=== PATIENT | female | born 1930 | race Caucasian/White ===

== ENCOUNTER → 2017-10-12 | Outpatient (CLI) | payer MEDICARE, BC ==
[~2017-10-12] MED LIST: CHOL2000 PO; DILT120C9 PO; DILT240C9 PO; FLEC50TA25 PO; FURO20TA3 PO; REGADENOSON 0.4 MG/5 ML SYRINGE ONE; SPIR25TA5 PO; WARF1TAB PO-COUM; WARF2.5T73 PO
== END | disposition home or self-care (01) ==
LOC: CFH 09:48
PROVIDERS: ATTEND Nurse Practitioner Family
DX: Z01.810 Encounter for preprocedural cardiovascular examination (principal); I08.1 Rheumatic disorders of both mitral and tricuspid valves; I21.09 ST elevation (STEMI) myocardial infarction involving other coronary artery of anterior wall; I48.91 Unspecified atrial fibrillation; I10 Essential (primary) hypertension; I42.9 Cardiomyopathy, unspecified; Z85.3 Personal history of malignant neoplasm of breast
CPT/HCPCS: 78452; 93017; 93306; A9502; J2785

== ENCOUNTER 2018-05-01 15:13 | Inpatient (IN) | payer MEDICARE, BC ==
[~2018-05-01] VITALS: Ht 160 cm; Wt 68.5 kg
[~2018-05-01 15:13] MED LIST changes: -REGADENOSON 0.4 MG/5 ML SYRINGE ONE; +WARF2.5T32 PO; -WARF2.5T73 PO
[2018-05-01] MEDS ORDERED: DILTIAZEM 125 MG in DEXTROSE 5% 100 ML IV SCH (15:55)
[2018-05-01] MEDS ORDERED: DILTIAZEM 5 MG/ML, 5ML IV ONE (16:00)
[2018-05-01] MEDS ORDERED: DILTIAZEM 5 MG/ML, 10ML ONE (16:16)
[2018-05-01 16:20] LABS: BASOPHILS # (AUTO) 0.01 x10^3/uL (0-0.1); BASOPHILS % (AUTO) 0 % (0-1); EOSINOPHILS # (AUTO) 0.01 x10^3/uL (0-0.4); EOSINOPHILS % (AUTO) 0 % (1-7); LYMPHOCYTES # (AUTO) 0.67 x10^3/uL (1-3.4); LYMPHOCYTES % (AUTO) 12 % (22-44); MD NO; MEAN CORPUSCULAR HEMOGLOBIN 31.9 pg (27.0-34.8); MEAN CORPUSCULAR HGB CONC 34.6 g/dL (32.4-35.8); MEAN CORPUSCULAR VOLUME 92.3 fL (80-100); MEAN PLATELET VOLUME 9.1 fL (7.4-10.4); MONOCYTES # (AUTO) 0.37 x10^3/uL (0.2-0.8); MONOCYTES % (AUTO) 7 % (2-9); NEUTROPHILS # (AUTO) 4.61 x10^3/uL (1.8-6.8); NEUTROPHILS % (AUTO) 81 % (42-75); PLATELET COUNT 146 x10^3/uL (130-400); RED BLOOD COUNT 5.07 x10^6/uL (3.82-5.3); RED CELL DISTRIBUTION WIDTH 14.8 % (9.6-15.2)
[2018-05-01 16:28] LABS: INTERNATIONAL NORMALIZED RATIO 1.73 (0.93-1.1); PROTHROMBIN TIME 17.8 Seconds (9.6-11.5)
[2018-05-01 16:31] LABS: ALBUMIN 3.8 g/dL (3.4-5.0); ANION GAP 7 mmol/L (5-15); CHLORIDE 109 mmol/L (98-107)
[2018-05-01 16:37] LABS: ALANINE AMINOTRANSFERASE 14 U/L (12-78); ALKALINE PHOSPHATASE 81 U/L (45-117); BILIRUBIN,TOTAL 1.5 mg/dL (0.2-1.0); CREATININE 1.77 mg/dL (0.55-1.02); TOTAL PROTEIN 7.5 g/dL (6.4-8.2); TROPONIN I 0.066 ng/mL (0.000-0.045)
--- NOTE | 2018-05-01 16:38 | NUR ---
LUNCH RN: BOLUS DOSE GIVEN OF CARDIZEM PER MAR, PT HR RESPONSIVE. CARDIZEM DRIP STARTED PER APR. VSS, HR DECREASING INTO 90s. RAD COMPLETED. AT BEDSIDE. CALL LIGHT WITHIN REACH.
[2018-05-01] MEDS ORDERED: PHARMACY MAY ADJ FOR RENAL FX MC PRN (19:30)
[2018-05-01] MEDS ORDERED: ONDANSETRON 2MG/ML, 2ML IVPush PRN (19:30)
[2018-05-01] MEDS ORDERED: ENOXAPARIN 40 MG/0.4 ML SQ SCH (19:30)
[2018-05-01] MEDS: DOXYCYCLINE 100MG TABLET PO SCH ×2 (19:30→23:00)
[2018-05-01] MEDS ORDERED: ONDANSETRON ODT 4 MG PO PRN (19:30)
[2018-05-01] MEDS ORDERED: POLYETHYLENE GLYCOL 17 GM PACKET PO PRN (19:30)
[2018-05-01] MEDS ORDERED: LABETALOL 5MG/ML, 20ML IVPush PRN (19:30)
[2018-05-01 19:46] LABS: FREE T4 (FREE THYROXINE) 1.05 ng/dL (0.76-1.46); TROPONIN I 0.075 ng/mL (0.000-0.045)
[2018-05-01 20:45] VITALS: BP 140/66
[2018-05-01] MEDS ORDERED: ENOXAPARIN 30 MG/0.3 ML SQ SCH (20:55)
[2018-05-01] MEDS ORDERED: FLECAINIDE 50MG TABLET PO SCH (21:00)
[2018-05-01] MEDS ORDERED: DILTIAZEM 120 MG CAP.ER.24H PO SCH (21:00)
[2018-05-01] MEDS ORDERED: WARFARIN 1 MG TABLET PO-COUM ONE (21:30)
[2018-05-01] MEDS: ASPIRIN 81 MG TABLET EC PO SCH (22:59)
[2018-05-01] MEDS: AMPICILLIN/SULBACTAM 3 GM in SODIUM CHLORIDE 0.9% 100 ML IV SCH (23:01)
[2018-05-01] MEDS: GUAIFENESIN 200 MG TABLET PO SCH (23:01)
[2018-05-01] MEDS ORDERED: ALBUTEROL SULFATE 2.5 MG/3 ML ONE (23:34)
[2018-05-01] MEDS: ENOXAPARIN 60 MG/0.6 ML SQ SCH (23:59)
[2018-05-02] MEDS ORDERED: ALBUTEROL SULFATE 2.5 MG/3 ML NPPB PRN
[2018-05-02 01:05] LABS: RAPID INFLUENZA A Negative (Negative); RAPID INFLUENZA B Negative (Negative)
[2018-05-02 01:34] VITALS: BP 122/75
[2018-05-02 02:56] LABS: TROPONIN I 0.091 ng/mL (0.000-0.045)
[2018-05-02] MEDS: AMPICILLIN/SULBACTAM 3 GM in SODIUM CHLORIDE 0.9% 100 ML IV SCH ×2 (05:21→10:39)
[2018-05-02] MEDS: GUAIFENESIN 200 MG TABLET PO SCH ×4 (05:21→22:12)
[2018-05-02] MEDS: ASPIRIN 81 MG TABLET EC PO SCH (05:21)
[2018-05-02 06:14] LABS: CULTURE INDICATED? NO; MICROSCOPIC AUTO
[2018-05-02 06:26] LABS: CREATININE,URINE RANDOM 74.1 mg/dL
[2018-05-02 07:27] VITALS: BP 128/79
[2018-05-02 07:30] LABS: BASOPHILS # (AUTO) 0.03 x10^3/uL (0-0.1); BASOPHILS % (AUTO) 1 % (0-1); EOSINOPHILS # (AUTO) 0.04 x10^3/uL (0-0.4); EOSINOPHILS % (AUTO) 1 % (1-7); LYMPHOCYTES # (AUTO) 0.87 x10^3/uL (1-3.4); LYMPHOCYTES % (AUTO) 18 % (22-44); MD NO; MEAN CORPUSCULAR HGB CONC 33.5 g/dL (32.4-35.8); MEAN CORPUSCULAR VOLUME 92.6 fL (80-100); MEAN PLATELET VOLUME 9.3 fL (7.4-10.4); MONOCYTES % (AUTO) 10 % (2-9); NEUTROPHILS # (AUTO) 3.53 x10^3/uL (1.8-6.8); NEUTROPHILS % (AUTO) 71 % (42-75); PLATELET COUNT 134 x10^3/uL (130-400); RED BLOOD COUNT 4.47 x10^6/uL (3.82-5.3)
[2018-05-02 07:33] LABS: CHLORIDE 107 mmol/L (98-107)
[2018-05-02 07:43] LABS: ALANINE AMINOTRANSFERASE 11 U/L (12-78); ALKALINE PHOSPHATASE 64 U/L (45-117); ANION GAP 7 mmol/L (5-15); BILIRUBIN,TOTAL 1.3 mg/dL (0.2-1.0); CALCIUM 9.4 mg/dL (8.5-10.1); CREATININE 1.63 mg/dL (0.55-1.02); TOTAL PROTEIN 6.2 g/dL (6.4-8.2); TROPONIN I 0.093 ng/mL (0.000-0.045)
[2018-05-02 07:46] LABS: INTERNATIONAL NORMALIZED RATIO 1.87 (0.93-1.1); PROTHROMBIN TIME 19.2 Seconds (9.6-11.5)
[2018-05-02] MEDS: SENNA/DOCUSATE TABLET PO SCH (08:38)
[2018-05-02] MEDS: DOXYCYCLINE 100MG TABLET PO SCH ×2 (08:38→22:12)
[2018-05-02] MEDS: CHOLECALCIFEROL 1,000 UNIT TABLET PO SCH (08:38)
[2018-05-02] MEDS: DILTIAZEM 30 MG TABLET PO SCH ×3 (10:39→22:12)
[2018-05-02 13:47] VITALS: BP 130/75
[2018-05-02] MEDS: ALBUTEROL SULFATE 2.5 MG/3 ML NPPB SCH ×2 (15:50→20:00)
[2018-05-02] MEDS ORDERED: WARFARIN 5 MG TABLET PO-COUM ONE (16:13)
[2018-05-02] MEDS ORDERED: WARFARIN 2.5 MG TABLET PO-COUM ONE (18:00)
[2018-05-02 19:16] VITALS: BP 131/80
[2018-05-02] MEDS ORDERED: methylPREDNISolone SOD SUCC 125 MG/2 ML IVPush ONE (21:00)
[2018-05-02] MEDS ORDERED: AMPICILLIN/SULBACTAM 3 GM in SODIUM CHLORIDE 0.9% 100 ML IV SCH (23:00)
[2018-05-03 00:12] VITALS: BP 153/87
[2018-05-03] MEDS: ENOXAPARIN 60 MG/0.6 ML SQ SCH (00:26)
[2018-05-03] MEDS: methylPREDNISolone SOD SUCC 125 MG/2 ML IVPush SCH ×3 (03:04→22:01)
[2018-05-03] MEDS: GUAIFENESIN 200 MG TABLET PO SCH ×4 (05:17→22:01)
[2018-05-03] MEDS: ASPIRIN 81 MG TABLET EC PO SCH (05:18)
[2018-05-03] MEDS: DILTIAZEM 30 MG TABLET PO SCH ×4 (05:18→22:02)
[2018-05-03 06:05] LABS: BASOPHILS # (AUTO) 0.01 x10^3/uL (0-0.1); BASOPHILS % (AUTO) 0 % (0-1); EOSINOPHILS % (AUTO) 0 % (1-7); LYMPHOCYTES # (AUTO) 0.46 x10^3/uL (1-3.4); LYMPHOCYTES % (AUTO) 9 % (22-44); MD NO; MEAN CORPUSCULAR HEMOGLOBIN 31.7 pg (27.0-34.8); MEAN CORPUSCULAR HGB CONC 34.2 g/dL (32.4-35.8); MEAN CORPUSCULAR VOLUME 92.7 fL (80-100); MEAN PLATELET VOLUME 9.3 fL (7.4-10.4); MONOCYTES # (AUTO) 0.04 x10^3/uL (0.2-0.8); MONOCYTES % (AUTO) 1 % (2-9); NEUTROPHILS # (AUTO) 4.57 x10^3/uL (1.8-6.8); NEUTROPHILS % (AUTO) 90 % (42-75); PLATELET COUNT 136 x10^3/uL (130-400); RED BLOOD COUNT 5.01 x10^6/uL (3.82-5.3); RED CELL DISTRIBUTION WIDTH 15.4 % (9.6-15.2)
[2018-05-03 06:07] LABS: INTERNATIONAL NORMALIZED RATIO 2.81 (0.93-1.1); PROTHROMBIN TIME 28.4 Seconds (9.6-11.5)
[2018-05-03 06:12] LABS: ALBUMIN 3.3 g/dL (3.4-5.0); ANION GAP 6 mmol/L (5-15); CALCIUM 9.9 mg/dL (8.5-10.1); CHLORIDE 110 mmol/L (98-107)
[2018-05-03 06:16] LABS: ALANINE AMINOTRANSFERASE 20 U/L (12-78); ALKALINE PHOSPHATASE 74 U/L (45-117); BILIRUBIN,TOTAL 0.8 mg/dL (0.2-1.0); CREATININE 1.77 mg/dL (0.55-1.02); TOTAL PROTEIN 7.1 g/dL (6.4-8.2)
[2018-05-03 07:12] VITALS: BP 134/77
[2018-05-03] MEDS: ALBUTEROL SULFATE 2.5 MG/3 ML NPPB SCH (07:20)
[2018-05-03] MEDS: DOXYCYCLINE 100MG TABLET PO SCH ×2 (08:35→22:01)
[2018-05-03] MEDS: FLECAINIDE 50MG TABLET PO SCH ×2 (08:35→22:02)
[2018-05-03] MEDS: CHOLECALCIFEROL 1,000 UNIT TABLET PO SCH (08:35)
[2018-05-03] MEDS: SENNA/DOCUSATE TABLET PO SCH (08:35)
[2018-05-03] MEDS ORDERED: DILTIAZEM 120 MG CAP.ER.12H PO SCH (09:00)
[2018-05-03] MEDS: AMPICILLIN/SULBACTAM 3 GM in SODIUM CHLORIDE 0.9% 50 ML IV SCH (12:46)
[2018-05-03 12:52] VITALS: BP 130/79
[2018-05-03] MEDS: FUROSEMIDE 20 MG/2 ML IV SCH (16:55)
[2018-05-03 17:07] LABS: BASOPHILS # (AUTO) 0.01 x10^3/uL (0-0.1); BASOPHILS % (AUTO) 0 % (0-1); EOSINOPHILS % (AUTO) 0 % (1-7); LYMPHOCYTES # (AUTO) 0.63 x10^3/uL (1-3.4); LYMPHOCYTES % (AUTO) 9 % (22-44); MD SCAN; MEAN CORPUSCULAR HEMOGLOBIN 31.7 pg (27.0-34.8); MEAN CORPUSCULAR VOLUME 93.1 fL (80-100); MEAN PLATELET VOLUME 9.6 fL (7.4-10.4); MONOCYTES # (AUTO) 0.11 x10^3/uL (0.2-0.8); MONOCYTES % (AUTO) 2 % (2-9); NEUTROPHILS # (AUTO) 6.45 x10^3/uL (1.8-6.8); NEUTROPHILS % (AUTO) 90 % (42-75); PLATELET COUNT 141 x10^3/uL (130-400); RED BLOOD COUNT 5.03 x10^6/uL (3.82-5.3); RED CELL DISTRIBUTION WIDTH 14.7 % (9.6-15.2)
[2018-05-03] MEDS ORDERED: WARFARIN 1 MG TABLET PO-COUM ONE (18:00)
[2018-05-03 19:11] VITALS: BP 145/73
[2018-05-04] MEDS: AMPICILLIN/SULBACTAM 3 GM in SODIUM CHLORIDE 0.9% 50 ML IV SCH ×2 (00:23→13:24)
[2018-05-04 01:26] VITALS: BP 130/79
[2018-05-04] MEDS: methylPREDNISolone SOD SUCC 125 MG/2 ML IVPush SCH ×3 (03:24→21:22)
[2018-05-04] MEDS: ASPIRIN 81 MG TABLET EC PO SCH (05:36)
[2018-05-04] MEDS: GUAIFENESIN 200 MG TABLET PO SCH ×4 (05:36→21:22)
[2018-05-04] MEDS: DILTIAZEM 30 MG TABLET PO SCH ×4 (05:36→21:21)
[2018-05-04 06:43] LABS: ALANINE AMINOTRANSFERASE 19 U/L (12-78); ALBUMIN 3.2 g/dL (3.4-5.0); ANION GAP 7 mmol/L (5-15); CALCIUM 9.5 mg/dL (8.5-10.1); CHLORIDE 108 mmol/L (98-107); CREATININE 1.96 mg/dL (0.55-1.02)
[2018-05-04 06:45] LABS: ALKALINE PHOSPHATASE 65 U/L (45-117); BILIRUBIN,TOTAL 0.9 mg/dL (0.2-1.0); TOTAL PROTEIN 6.9 g/dL (6.4-8.2)
[2018-05-04 07:36] VITALS: BP 134/76
[2018-05-04 07:49] LABS: INTERNATIONAL NORMALIZED RATIO 3.99 (0.93-1.1); PROTHROMBIN TIME 39.7 Seconds (9.6-11.5)
[2018-05-04] MEDS: DOXYCYCLINE 100MG TABLET PO SCH ×2 (08:13→21:21)
[2018-05-04] MEDS: CHOLECALCIFEROL 1,000 UNIT TABLET PO SCH (08:13)
[2018-05-04] MEDS: FUROSEMIDE 20 MG/2 ML IV SCH (08:14)
[2018-05-04] MEDS: FLECAINIDE 50MG TABLET PO SCH ×2 (08:14→21:21)
[2018-05-04] MEDS: SENNA/DOCUSATE TABLET PO SCH (08:17)
[2018-05-04 13:31] VITALS: BP 127/79
[2018-05-04] MEDS ORDERED: WARFARIN 2 MG TABLET PO-COUM ONE (17:27)
[2018-05-04] MEDS ORDERED: WARFARIN 1 MG TABLET PO-COUM ONE (18:00)
[2018-05-04 19:41] VITALS: BP 136/78
[2018-05-05 00:10] VITALS: BP 156/82
[2018-05-05] MEDS: AMPICILLIN/SULBACTAM 3 GM in SODIUM CHLORIDE 0.9% 50 ML IV SCH ×2 (01:31→12:41)
[2018-05-05] MEDS: ASPIRIN 81 MG TABLET EC PO SCH (05:17)
[2018-05-05] MEDS: methylPREDNISolone SOD SUCC 125 MG/2 ML IVPush SCH (05:17)
[2018-05-05] MEDS: DILTIAZEM 30 MG TABLET PO SCH ×4 (05:17→21:56)
[2018-05-05] MEDS: GUAIFENESIN 200 MG TABLET PO SCH ×4 (05:17→21:56)
[2018-05-05 05:44] LABS: INTERNATIONAL NORMALIZED RATIO 2.97 (0.93-1.1); PROTHROMBIN TIME 29.9 Seconds (9.6-11.5)
[2018-05-05 07:21] VITALS: BP 151/78
[2018-05-05 08:51] LABS: ALBUMIN 2.9 g/dL (3.4-5.0); ANION GAP 6 mmol/L (5-15); CALCIUM 9.1 mg/dL (8.5-10.1); CHLORIDE 107 mmol/L (98-107); CREATININE 1.94 mg/dL (0.55-1.02)
[2018-05-05] MEDS: SENNA/DOCUSATE TABLET PO SCH (09:00)
[2018-05-05 09:12] LABS: MEAN CORPUSCULAR HEMOGLOBIN 30.8 pg (27.0-34.8); MEAN CORPUSCULAR HGB CONC 33.4 g/dL (32.4-35.8); MEAN CORPUSCULAR VOLUME 92.3 fL (80-100); MEAN PLATELET VOLUME 9.6 fL (7.4-10.4); PLATELET COUNT 155 x10^3/uL (130-400); RED BLOOD COUNT 4.52 x10^6/uL (3.82-5.3); RED CELL DISTRIBUTION WIDTH 14.5 % (9.6-15.2)
[2018-05-05] MEDS: CHOLECALCIFEROL 1,000 UNIT TABLET PO SCH (09:14)
[2018-05-05] MEDS: DOXYCYCLINE 100MG TABLET PO SCH ×2 (09:14→21:56)
[2018-05-05] MEDS: FLECAINIDE 50MG TABLET PO SCH ×2 (09:15→21:56)
[2018-05-05 09:52] LABS: MD YES
[2018-05-05 09:54] LABS: <PLATELET ESTIMATE> ADEQUATE; <PLT MORPHOLOGY> NORMAL PLT MORPH; <RBC MORPHOLOGY> NORMAL; BAND#(MANUAL) 1.42 x10^3/uL; BANDS%(MANUAL) 10 % (0-7); LYMPH#(MANUAL) 0.99 x10^3/uL (1-3.4); LYMPHS% (MANUAL) 7 % (22-44); SEG#(MANUAL) 11.79 x10^3/uL (1.8-6.8); SEGS% (MANUAL) 83 % (42-75)
[2018-05-05 15:31] VITALS: BP 148/86
[2018-05-05] MEDS ORDERED: WARFARIN 1 MG TABLET PO-COUM ONE (18:00)
[2018-05-05 18:27] VITALS: BP 169/91
[2018-05-06 00:22] VITALS: BP 133/82
[2018-05-06] MEDS: AMPICILLIN/SULBACTAM 3 GM in SODIUM CHLORIDE 0.9% 50 ML IV SCH ×2 (01:02→12:30)
[2018-05-06] MEDS: DILTIAZEM 30 MG TABLET PO SCH ×2 (05:12→12:59)
[2018-05-06] MEDS: ASPIRIN 81 MG TABLET EC PO SCH (05:12)
[2018-05-06] MEDS: GUAIFENESIN 200 MG TABLET PO SCH ×2 (05:12→12:59)
[2018-05-06 05:59] LABS: MEAN CORPUSCULAR HEMOGLOBIN 31.6 pg (27.0-34.8); MEAN PLATELET VOLUME 9.4 fL (7.4-10.4); PLATELET COUNT 176 x10^3/uL (130-400); RED BLOOD COUNT 4.68 x10^6/uL (3.82-5.3); RED CELL DISTRIBUTION WIDTH 14.4 % (9.6-15.2)
[2018-05-06 06:02] LABS: INTERNATIONAL NORMALIZED RATIO 2.73 (0.93-1.1); PROTHROMBIN TIME 27.6 Seconds (9.6-11.5)
[2018-05-06 06:09] LABS: ANION GAP 5 mmol/L (5-15); CALCIUM 9.6 mg/dL (8.5-10.1); CHLORIDE 107 mmol/L (98-107); CREATININE 1.68 mg/dL (0.55-1.02)
[2018-05-06 06:26] LABS: MD YES
[2018-05-06 06:29] LABS: <RBC MORPHOLOGY> NORMAL; LYMPH#(MANUAL) 0.75 x10^3/uL (1-3.4); LYMPHS% (MANUAL) 6 % (22-44); SEG#(MANUAL) 11.75 x10^3/uL (1.8-6.8); SEGS% (MANUAL) 94 % (42-75)
[2018-05-06 06:30] LABS: <PLATELET ESTIMATE> ADEQUATE; <PLT MORPHOLOGY> NORMAL PLT MORPH
[2018-05-06 07:33] VITALS: BP 160/93
[2018-05-06] MEDS: DOXYCYCLINE 100MG TABLET PO SCH (07:46)
[2018-05-06] MEDS: FLECAINIDE 50MG TABLET PO SCH (07:46)
[2018-05-06] MEDS: CHOLECALCIFEROL 1,000 UNIT TABLET PO SCH (07:47)
[2018-05-06] MEDS: SENNA/DOCUSATE TABLET PO SCH (07:47)
[2018-05-06] MEDS ORDERED: PRED10TA PO (08:11)
[2018-05-06] MEDS ORDERED: DOXY100C2 PO (08:11)
[2018-05-06] MEDS ORDERED: AMOX1TAB64 PO (08:11)
[2018-05-06] MEDS ORDERED: GUAI200T3 PO (08:11)
== END 2018-05-06 13:08 | disposition home health service (06) | DRG 871 ==
LOC: ED 16:53 → EDIP 16:54 → ED 17:09 → 4EST 20:44
PROVIDERS: ADMIT Internal Medicine; ATTEND Internal Medicine
DX: A41.9 Sepsis, unspecified organism (principal); J96.01 Acute respiratory failure with hypoxia; J18.9 Pneumonia, unspecified organism; D68.69 Other thrombophilia; E87.2 Acidosis; I13.0 Hypertensive heart and chronic kidney disease with heart failure and stage 1 through stage 4 chronic kidney disease, or unspecified chronic kidney disease; I50.22 Chronic systolic (congestive) heart failure; J44.0 Chronic obstructive pulmonary disease with (acute) lower respiratory infection; J44.1 Chronic obstructive pulmonary disease with (acute) exacerbation; N17.9 Acute kidney failure, unspecified; I25.10 Atherosclerotic heart disease of native coronary artery without angina pectoris; I08.3 Combined rheumatic disorders of mitral, aortic and tricuspid valves; I48.91 Unspecified atrial fibrillation; I71.4 Abdominal aortic aneurysm, without rupture; N18.3 Chronic kidney disease, stage 3 (moderate); Z79.01 Long term (current) use of anticoagulants; Z85.3 Personal history of malignant neoplasm of breast; Z87.891 Personal history of nicotine dependence
CPT/HCPCS: 36415; 71045; 71250; 80048; 80053; 81001; 82040; 82570; 83605; 83735; 83880; 84100; 84145; 84300; 84439; 84443; 84484; 85025; 85610; 87040; 87400; 93005; 93306; 93970; 94640; 94664; G0378; J0295; J1650; J7613; J1940; J2930; J7512

== ENCOUNTER 2018-06-05 15:57 | Inpatient (IN) | payer MEDICARE, BC ==
[~2018-06-05] VITALS: Ht 160 cm; Wt 68.0 kg
[~2018-06-05 15:57] MED LIST changes: +AMOX1TAB64 PO; +DOXY100C2 PO; +GUAI200T3 PO; +PRED10TA PO
--- NOTE | 2018-06-05 16:27 | NUR ---
Patient brought in by EMS for lower extremity swelling increasing over the last three weeks with erythema and warmth progressing x2 days. Patient reports lower legs have also been weeping, yellow crust apparent on bilateral lower extremities. Patient arrives alert, answering questions appropriately with her at bedside. No interventions by EMS. Call simmons placed within reach.
[2018-06-05 16:38] LABS: BASOPHILS # (AUTO) 0.01 x10^3/uL (0-0.1); BASOPHILS % (AUTO) 0 % (0-1); EOSINOPHILS # (AUTO) 0.11 x10^3/uL (0-0.4); EOSINOPHILS % (AUTO) 2 % (1-7); LYMPHOCYTES # (AUTO) 0.85 x10^3/uL (1-3.4); LYMPHOCYTES % (AUTO) 14 % (22-44); MD NO; MEAN CORPUSCULAR HEMOGLOBIN 31.1 pg (27.0-34.8); MEAN CORPUSCULAR HGB CONC 33.3 g/dL (32.4-35.8); MEAN CORPUSCULAR VOLUME 93.4 fL (80-100); MEAN PLATELET VOLUME 8.8 fL (7.4-10.4); MONOCYTES # (AUTO) 0.43 x10^3/uL (0.2-0.8); MONOCYTES % (AUTO) 7 % (2-9); NEUTROPHILS # (AUTO) 4.54 x10^3/uL (1.8-6.8); NEUTROPHILS % (AUTO) 76 % (42-75); PLATELET COUNT 186 x10^3/uL (130-400); RED BLOOD COUNT 4.25 x10^6/uL (3.82-5.3); RED CELL DISTRIBUTION WIDTH 15.4 % (9.6-15.2)
[2018-06-05 16:48] LABS: INTERNATIONAL NORMALIZED RATIO 1.18 (0.93-1.1); PROTHROMBIN TIME 12.3 Seconds (9.6-11.5)
[2018-06-05 16:49] LABS: ALBUMIN 2.8 g/dL (3.4-5.0); ANION GAP 5 mmol/L (5-15); CALCIUM 9.6 mg/dL (8.5-10.1); CHLORIDE 108 mmol/L (98-107); CREATININE 2.09 mg/dL (0.55-1.02)
[2018-06-05] MEDS ORDERED: CEFTRIAXONE PMX 1GM/50ML 50 ML IVPB ONE (18:00)
--- NOTE | 2018-06-05 18:13 | NUR ---
Plan of care discussed with patient and her , questions answered. Patient up to use restroom ambulating with her cane, back to bed with blood pressure and SPO2 monitoring in place. Call simmons within reach. Attempted to reconcile medications, patient does not have medication list and cannot remember what medication she takes. asked to call when he gets home with medication information.
[2018-06-05] MEDS ORDERED: CEFTRIAXONE PMX 1GM/50ML 50 ML ONE (18:17)
[2018-06-05] MEDS ORDERED: SODIUM CHLORIDE FLUSH 10ML SYR IVF PRN (18:30)
--- NOTE | 2018-06-05 18:33 | NUR ---
Report called to LIBRADO Collier
[2018-06-05] MEDS ORDERED: PHARMACY MAY ADJ FOR RENAL FX MC PRN (19:00)
[2018-06-05 20:06] VITALS: BP 163/102
[2018-06-05] MEDS ORDERED: LIDODERM 5% PATCH TD PRN (20:30)
[2018-06-05] MEDS ORDERED: ACETAMINOPHEN 325 MG TABLET PO PRN (20:30)
[2018-06-05] MEDS ORDERED: hydrALAzine 20 MG/ML, 1ML IVPush PRN (20:30)
[2018-06-05] MEDS ORDERED: ONDANSETRON ODT 4 MG PO PRN (20:30)
[2018-06-05] MEDS ORDERED: BISACODYL 10 MG SUPP PR PRN (20:30)
[2018-06-05] MEDS ORDERED: WARFARIN 1 MG TABLET PO-COUM ONE (20:30)
[2018-06-05] MEDS: NYSTATIN/TRIAMCINOLONE CRM 15GM TP SCH (21:00)
[2018-06-05 21:41] VITALS: BP 163/102
[2018-06-05] MEDS ORDERED: LOSA25TA25 PO (21:48)
[2018-06-05] MEDS ORDERED: METO-264 PO (21:49)
[2018-06-06 01:14] VITALS: BP 130/80
[2018-06-06 04:55] LABS: BASOPHILS # (AUTO) 0.04 x10^3/uL (0-0.1); BASOPHILS % (AUTO) 1 % (0-1); EOSINOPHILS # (AUTO) 0.14 x10^3/uL (0-0.4); EOSINOPHILS % (AUTO) 3 % (1-7); LYMPHOCYTES # (AUTO) 0.98 x10^3/uL (1-3.4); LYMPHOCYTES % (AUTO) 17 % (22-44); MD NO; MEAN CORPUSCULAR HEMOGLOBIN 31.8 pg (27.0-34.8); MEAN CORPUSCULAR HGB CONC 34.1 g/dL (32.4-35.8); MEAN CORPUSCULAR VOLUME 93.3 fL (80-100); MEAN PLATELET VOLUME 8.3 fL (7.4-10.4); MONOCYTES # (AUTO) 0.55 x10^3/uL (0.2-0.8); MONOCYTES % (AUTO) 10 % (2-9); NEUTROPHILS # (AUTO) 3.99 x10^3/uL (1.8-6.8); NEUTROPHILS % (AUTO) 70 % (42-75); PLATELET COUNT 172 x10^3/uL (130-400); RED BLOOD COUNT 3.92 x10^6/uL (3.82-5.3); RED CELL DISTRIBUTION WIDTH 15.2 % (9.6-15.2)
[2018-06-06 05:04] LABS: INTERNATIONAL NORMALIZED RATIO 1.27 (0.93-1.1); PROTHROMBIN TIME 13.2 Seconds (9.6-11.5)
[2018-06-06 05:07] LABS: CHLORIDE 110 mmol/L (98-107)
[2018-06-06 05:11] LABS: ANION GAP 5 mmol/L (5-15); CALCIUM 9.7 mg/dL (8.5-10.1); CREATININE 1.98 mg/dL (0.55-1.02)
[2018-06-06] MEDS: CEFTRIAXONE PMX 2GM/50ML 50 ML IV SCH (05:34)
[2018-06-06] MEDS: NYSTATIN/TRIAMCINOLONE CRM 15GM TP SCH ×4 (06:03→21:14)
[2018-06-06 06:52] VITALS: BP 152/85
[2018-06-06] MEDS: METOPROLOL SUCCINATE 25 MG TAB.ER.24H PO SCH (09:49)
[2018-06-06] MEDS: LOSARTAN 25MG TABLET PO SCH ×2 (09:49→21:14)
[2018-06-06 12:58] VITALS: BP 162/92
[2018-06-06] MEDS ORDERED: PHARMACY MAY ADJ FOR RENAL FX MC PRN (13:30)
[2018-06-06 15:46] LABS: CULTURE INDICATED? YES; MICROSCOPIC INDICATED
[2018-06-06] MEDS ORDERED: WARFARIN 2 MG TABLET PO-COUM ONE (18:00)
[2018-06-06 20:00] VITALS: BP 151/98
[2018-06-07 00:04] VITALS: BP 156/78
[2018-06-07] MEDS: NYSTATIN/TRIAMCINOLONE CRM 15GM TP SCH ×2 (05:00→12:52)
[2018-06-07] MEDS: CEFTRIAXONE PMX 2GM/50ML 50 ML IV SCH (05:12)
[2018-06-07 06:04] LABS: INTERNATIONAL NORMALIZED RATIO 1.31 (0.93-1.1); PROTHROMBIN TIME 13.6 Seconds (9.6-11.5)
[2018-06-07 07:04] VITALS: BP 147/76
[2018-06-07 07:13] LABS: ANION GAP 4 mmol/L (5-15); CALCIUM 9.5 mg/dL (8.5-10.1); CHLORIDE 111 mmol/L (98-107); CREATININE 1.76 mg/dL (0.55-1.02)
[2018-06-07 09:30] VITALS: BP 131/87
[2018-06-07] MEDS: LOSARTAN 25MG TABLET PO SCH (09:31)
[2018-06-07] MEDS: METOPROLOL SUCCINATE 25 MG TAB.ER.24H PO SCH (09:32)
[2018-06-07 14:47] VITALS: BP 143/84
[2018-06-07] MEDS ORDERED: WARF3TAB PO-COUM (15:14)
[2018-06-07] MEDS ORDERED: FURO20TA3 PO (15:14)
[2018-06-07] MEDS ORDERED: AMOX1TAB64 PO (15:14)
[2018-06-07] MEDS ORDERED: NYST15CR2 TP (17:35)
[2018-06-07] MEDS ORDERED: WARFARIN 3 MG TABLET PO-COUM SCH (18:00)
== END 2018-06-07 18:58 | disposition home health service (06) | DRG 602 ==
LOC: ED 17:07 → EDIP 18:06 → 4WST 19:49
PROVIDERS: ADMIT Internal Medicine; ATTEND Internal Medicine
DX: L03.115 Cellulitis of right lower limb (principal); N17.0 Acute kidney failure with tubular necrosis; R65.11 Systemic inflammatory response syndrome (SIRS) of non-infectious origin with acute organ dysfunction; J96.10 Chronic respiratory failure, unspecified whether with hypoxia or hypercapnia; D68.59 Other primary thrombophilia; I13.0 Hypertensive heart and chronic kidney disease with heart failure and stage 1 through stage 4 chronic kidney disease, or unspecified chronic kidney disease; I50.42 Chronic combined systolic (congestive) and diastolic (congestive) heart failure; L03.116 Cellulitis of left lower limb; N14.1 Nephropathy induced by other drugs, medicaments and biological substances; T50.2X5A Adverse effect of carbonic-anhydrase inhibitors, benzothiadiazides and other diuretics, initial encounter; I48.2 Chronic atrial fibrillation; B36.9 Superficial mycosis, unspecified; Z88.8 Allergy status to other drugs, medicaments and biological substances; I71.9 Aortic aneurysm of unspecified site, without rupture; J44.9 Chronic obstructive pulmonary disease, unspecified; N18.9 Chronic kidney disease, unspecified; Z79.01 Long term (current) use of anticoagulants; Z87.01 Personal history of pneumonia (recurrent); Z87.891 Personal history of nicotine dependence; Z66 Do not resuscitate
CPT/HCPCS: 36415; 80048; 81001; 82040; 83880; 84300; 85025; 85610; 85730; 87070; 87086; 87205; 93005; 93970; 96374; 99285; G0378; J0696

== ENCOUNTER → 2018-07-04 | Outpatient (CLI) | payer MEDICARE, BC ==
[~2018-07-04] MED LIST changes: +LOSA25TA25 PO; +METO-264 PO; +NYST15CR2 TP; +WARF3TAB PO-COUM
[2018-07-04 12:31] LABS: ALBUMIN 3.5 g/dL (3.4-5.0); ANION GAP 4 mmol/L (5-15); CALCIUM 9.8 mg/dL (8.5-10.1); CHLORIDE 107 mmol/L (98-107)
[2018-07-04 12:41] LABS: ALANINE AMINOTRANSFERASE 12 U/L (12-78); ALKALINE PHOSPHATASE 74 U/L (45-117); BILIRUBIN,TOTAL 1.2 mg/dL (0.2-1.0); CHOL/HDL RATIO 3.8; CHOLESTEROL, TOTAL 162 mg/dL (140-239); CREATININE 2.85 mg/dL (0.55-1.02); HDL CHOL % 27 % (28-40); HDL CHOLESTEROL (DIRECT) 43 mg/dL (40-60); LDL CHOLESTEROL,CALCULATED 98 mg/dL (54-169); LDL/HDL RATIO 2.3 (0.5-3.0); TOTAL PROTEIN 7.1 g/dL (6.4-8.2); TRIGLYCERIDES 104 mg/dL (50-200); VLDL CHOLESTEROL 21 mg/dL (0-25)
== END | disposition home or self-care (01) ==
LOC: CFH 11:12
PROVIDERS: ATTEND Internal Medicine Cardiovascular Disease
DX: I48.91 Unspecified atrial fibrillation (principal); I11.9 Hypertensive heart disease without heart failure
CPT/HCPCS: 36415; 80053; 80061

== ENCOUNTER 2018-09-12 09:35 | Outpatient (CLI) | payer MEDICARE, BC | END 2018-09-12 23:59 | disposition home or self-care (01) | LOC: CFH 09:35 | PROVIDERS: ATTEND Nurse Practitioner Primary Care | DX: Z13.220 Encounter for screening for lipoid disorders (principal); E55.9 Vitamin D deficiency, unspecified; R53.83 Other fatigue; I48.91 Unspecified atrial fibrillation; I50.9 Heart failure, unspecified; R06.00 Dyspnea, unspecified; I71.4 Abdominal aortic aneurysm, without rupture; I89.0 Lymphedema, not elsewhere classified; E61.1 Iron deficiency; R23.4 Changes in skin texture; N18.4 Chronic kidney disease, stage 4 (severe); J44.9 Chronic obstructive pulmonary disease, unspecified; Z71.89 Other specified counseling; Z79.899 Other long term (current) drug therapy; Z85.3 Personal history of malignant neoplasm of breast; Z78.9 Other specified health status | CPT/HCPCS: 36415; 80053; 84443; 85025 ==

== ENCOUNTER → 2019-01-02 | Outpatient (CLI) | payer BC, MEDICARE ==
[~2019-01-02] MED LIST changes: +DILT120C48 PO; -DILT120C9 PO; -GUAI200T3 PO; +GUAI200T37 PO
== END | disposition home or self-care (01) ==
LOC: CFH 13:28
PROVIDERS: ATTEND Nurse Practitioner Primary Care
DX: G31.9 Degenerative disease of nervous system, unspecified (principal); R41.3 Other amnesia; R53.83 Other fatigue; E55.9 Vitamin D deficiency, unspecified; N18.9 Chronic kidney disease, unspecified; I48.20 Chronic atrial fibrillation, unspecified; R79.9 Abnormal finding of blood chemistry, unspecified; Z79.899 Other long term (current) drug therapy; F10.20 Alcohol dependence, uncomplicated; Z87.891 Personal history of nicotine dependence; I50.9 Heart failure, unspecified; J44.9 Chronic obstructive pulmonary disease, unspecified
CPT/HCPCS: 70551

== ENCOUNTER 2019-05-16 14:19 | Emergency (ER) | payer MEDICARE, BC ==
[~2019-05-16] VITALS: Ht 160 cm; Wt 64.9 kg
[~2019-05-16 14:19] MED LIST changes: +DILT240C47 PO; -DILT240C9 PO
--- NOTE | 2019-05-16 14:45 | NUR ---
PT REPORTS SHE HAS A BLISTER ON HER RIGHT TOE THAT IS PAINFUL. PT SEEN BY DR BRASHER. NO ACUTE DISTRESS NOTED. XRAY IN ROOM. REPORT GIVEN TO LIBRADO TOTH.
--- NOTE | 2019-05-16 14:48 | NUR ---
Rn returned to assume patient care. Patient resting comfortably, radiology fire range technician at bedside. Patient is alert, oriented answers questions clearly and concisely. Awaiting results to administer medications.
[2019-05-16 15:57] VITALS: BP 119/64
[2019-05-16] MEDS ORDERED: NEOSPORIN OINT. PKT 1 PACKET ONE (15:59)
== END 2019-05-16 16:33 ==
LOC: ED 16:27
DX: L03.031 Cellulitis of right toe (principal); I11.0 Hypertensive heart disease with heart failure; I50.9 Heart failure, unspecified; I48.91 Unspecified atrial fibrillation; N28.9 Disorder of kidney and ureter, unspecified
CPT/HCPCS: 99283

== ENCOUNTER 2019-05-29 09:48 | Emergency (ER) | payer MEDICARE, BC ==
[~2019-05-29] VITALS: Ht 160 cm; Wt 62.0 kg
--- NOTE | 2019-05-29 10:16 | NUR ---
PIV ACCESS OBTAINED, 20 R FA. LAB AT BEDSIDE OBTAINING BLOOD.
[2019-05-29] MEDS ORDERED: CEFAZOLIN PMX 1GM/50ML 50 ML IVPB ONE (10:30)
--- NOTE | 2019-05-29 10:44 | NUR ---
CXR AT BEDSIDE.
[2019-05-29 10:54] VITALS: BP 139/73
--- NOTE | 2019-05-29 10:55 | NUR ---
ABX BEING ADMINISTERED PER EMAR.
[2019-05-29 10:56] LABS: BASOPHILS # (AUTO) 0.03 x10^3/uL (0-0.1); BASOPHILS % (AUTO) 0 % (0-1); EOSINOPHILS # (AUTO) 0.11 x10^3/uL (0-0.4); EOSINOPHILS % (AUTO) 1 % (1-7); LYMPHOCYTES % (AUTO) 17 % (22-44); MD NO; MEAN CORPUSCULAR HEMOGLOBIN 31.5 pg (27.0-34.8); MEAN CORPUSCULAR HGB CONC 33.4 g/dL (32.4-35.8); MEAN CORPUSCULAR VOLUME 94.4 fL (80-100); MEAN PLATELET VOLUME 9.5 fL (7.4-10.4); MONOCYTES # (AUTO) 0.45 x10^3/uL (0.2-0.8); MONOCYTES % (AUTO) 6 % (2-9); NEUTROPHILS # (AUTO) 6.11 x10^3/uL (1.8-6.8); NEUTROPHILS % (AUTO) 75 % (42-75); PLATELET COUNT 165 x10^3/uL (130-400); RED BLOOD COUNT 4.97 x10^6/uL (3.82-5.3); RED CELL DISTRIBUTION WIDTH 14.7 % (9.6-15.2)
--- NOTE | 2019-05-29 10:57 | NUR ---
US AT BEDSIDE.
[2019-05-29 11:05] LABS: ALBUMIN 3.4 g/dL (3.4-5.0); ANION GAP 6 mmol/L (5-15); CALCIUM 10.4 mg/dL (8.5-10.1); CHLORIDE 106 mmol/L (98-107)
--- NOTE | 2019-05-29 11:13 | NUR ---
ERMD AT BEDSIDE EVALUATING PT.
--- NOTE | 2019-05-29 11:20 | NUR ---
LIBRADO PROVIDED MD WITH A DOPPLER PER REQUEST.
--- NOTE | 2019-05-29 11:32 | NUR ---
RN CALLED KORINA TURK TO INFORM HER THAT PATIENT IS GOING TO BE DC WITHINT 30-45 MINUTES. RN ASKED GRANDDAUGHTER IF SHE IS ABLE TO CORPORATE QUALITY ENGINEER PT. PAMUGHTER SAID NO. RN TO INFORM THROUGHPUT TO GET A RIDE SET UP.
--- NOTE | 2019-05-29 11:44 | NUR ---
RN INFORMED THROUGHPUT THAT [facility] IS NEEDED TO TAKE PT BACK TO [facility]. THROUGHPUT TO SCHEDULE TIME.
--- NOTE | 2019-05-29 12:05 | NUR ---
RN WENT OVER DISCHARGE INSTRUCTIONS OVER THE PHONE WITH GRANDDAUGHTER ROSALEE.
--- NOTE | 2019-05-29 12:34 | NUR ---
AWAITING [facility] AT 1300. PT ASLEEP ON GURNEY.
== END 2019-05-29 12:46 | disposition home or self-care (01) ==
LOC: ED 09:54
DX: S91.331A Puncture wound without foreign body, right foot, initial encounter (principal); L03.115 Cellulitis of right lower limb; I10 Essential (primary) hypertension; I48.91 Unspecified atrial fibrillation; X58.XXXA Exposure to other specified factors, initial encounter; Y93.89 Activity, other specified; Y92.89 Other specified places as the place of occurrence of the external cause; Y99.8 Other external cause status
CPT/HCPCS: 36415; 73630; 80048; 82040; 83605; 85025; 87040; 93971; 96365; 99285; J0690